=== PATIENT | male | born 1995 | race Caucasian/White ===

== ENCOUNTER 2016-04-14 12:34 | Emergency (ER) | payer MEDICAID ==
[~2016-04-14] VITALS: Ht 180.3 cm; Wt 77.0 kg
[~2016-04-14 12:34] MED LIST: OLAN20TA2 PO; OLAN7.5T9 PO
[2016-04-14] MEDS ORDERED: HALOPERIDOL LACTATE 5 MG/ML VIAL IM ONE (13:15)
[2016-04-14] MEDS ORDERED: LORazepam 2 MG/ML VIAL IM ONE (13:15)
[2016-04-14 13:20] LABS: BASOPHILS % (AUTO) 0.2 % (0.0-2.0); HEMATOCRIT 41.2 % (41-53); HEMOGLOBIN 13.4 g/dL (13.5-17.5); LYMPHOCYTES # (AUTO) 1.9 K/uL (1.0-4.8); LYMPHOCYTES % (AUTO) 10.9 % (22.0-44.0); MEAN CORPUSCULAR HEMOGLOBIN 28.7 pg (26.0-34.0); MEAN CORPUSCULAR HGB CONC 32.6 G/dL (31.0-37.0); MEAN CORPUSCULAR VOLUME 88 fL (80-100); MONOCYTES # (AUTO) 1.2 K/uL (0.1-1.0); MONOCYTES % (AUTO) 6.8 % (2.0-9.0); NEUTROPHILS % (AUTO) 81.1 % (40.0-70.0); PLATELET COUNT (AUTO) 377 K/uL (150-450); RED BLOOD CELL COUNT(AUTO) 4.67 MIL/uL (4.50-5.90); RED CELL DISTRIBUTION WIDTH 13.7 % (11.5-14.5); WHITE BLOOD COUNT (AUTO) 17.3 K/uL (4.5-11.0)
[2016-04-14 13:31] LABS: ANION GAP 10 mmol/L (8-16); CARBON DIOXIDE 24 mmol/L (22-29); CHLORIDE 106 mmol/L (98-107); CREATININE 1.36 mg/dL (0.60-1.30); GLOMERULAR FILTR. RATE CALC > 60 mL/min (>60); POTASSIUM 4.2 mmol/L (3.5-5.1); SODIUM SERUM 140 mmol/L (136-145); UREA NITROGEN, BLOOD 20 mg/dL (7-18)
[2016-04-14 13:37] LABS: ALANINE AMINOTRANSFERASE 30 U/L (12-78); ALBUMIN 3.6 g/dL (3.4-5.0); ASPARTATE AMINOTRANSFERASE 18 U/L (15-37); BILIRUBIN,TOTAL 0.4 mg/dL (0.1-1.0); TOTAL PROTEIN, SERUM 7.2 g/dL (6.4-8.2)
[2016-04-14 16:20] VITALS: BP 138/79
== END 2016-04-14 16:46 | disposition home or self-care (01) ==
LOC: EEVIPCON 12:35 → EMS 12:35
DX: R46.89 Other symptoms and signs involving appearance and behavior (principal); D72.829 Elevated white blood cell count, unspecified; F20.9 Schizophrenia, unspecified
CPT/HCPCS: 36415; 80053; 85025; 96372; 99284; G0480; J1630; J2060